=== PATIENT | male | born 1945 | race Caucasian/White ===

== ENCOUNTER 2016-06-13 08:43 | Day surgery (SDC) | payer MEDICARE, OTHER ==
[~2016-06-13 08:43] MED LIST: EPINEPHRINE INJ 1 MG/10 ML DISP.SYRIN ONE; FENTANYL CITRATE INJ/PF 100 MCG/2 ML AMPUL ONE; FLUMAZENIL INJ 0.5 MG/5 ML VIAL IV ONE; GLUCAGON,HUMAN RECOMB 1 MG INJ ONE; GLYCOPYRROLATE INJ 0.4 MG/2 ML VIAL ONE; NALOXONE HCL INJ/PF 0.4 MG/1 ML SDV ONE; ONDANSETRON HCL INJ/PF 4 MG/2 ML SDV ONE; PROMETHAZINE HCL INJ 25 MG/1 ML VIAL ONE
[2016-06-13 09:39] LABS: HEMATOCRIT 39.4 % (37.9-51.0); HEMOGLOBIN 13.5 g/dL (13.5-17.0); HGB HCT DIFFERENCE 1.1; MEAN CORPUSCULAR HEMOGLOBIN 31.4 pg (27.0-33.4); MEAN CORPUSCULAR HGB CONC 34.1 g/dL (32.0-36.0); MEAN CORPUSCULAR VOLUME 92 fl (80-97); RED BLOOD COUNT 4.29 10^6/uL (4.35-5.55); RED CELL DISTRIBUTION WIDTH 13.3 % (11.5-14.0); WHITE BLOOD COUNT 6.1 10^3/uL (4.0-10.5)
[2016-06-13] MEDS: MIDAZOLAM 2 MG/2 ML INJ ONE ×2 (11:28→11:32)
--- NOTE | 2016-06-13 12:27 | Operative Report ---
Operative Report DATE OF SURGERY: 06/13/16 PREOPERATIVE DIAGNOSIS: Screening for colon cancer POSTOPERATIVE DIAGNOSIS: Diverticulosis, prominent fold in the right colon OPERATION: Colonoscopy with right colon biopsy SURGEON: VINCENT TAYLOR ANESTHESIA: Moderate Sedation TISSUE REMOVED OR ALTERED: Right colon fold biopsy COMPLICATIONS: None ESTIMATED BLOOD LOSS: minimal INTRAOPERATIVE FINDINGS: Multiple large diverticuli throughout the colon especially the sigmoid colon with mucosal edema and spasm. Prominent fold of the right colon about 3 folds away from the cecum PROCEDURE: Informed consent was obtained. Patient was brought to the endoscopy suite and placed on the endoscopy suite table with his left side down. IV sedation with Versed and fentanyl was administered. Digital rectal exam revealed no palpable perianal masses. Endoscope was passed via the patient's anus it was fed to the cecum. Patient's the sigmoid colon had multiple large diverticuli and had the spasm with the some evidence of mucosal edema making the passage of the scope through this area extremely difficult. Visualization was the very difficult due to the spasm and redundancy and the multiple diverticuli and the possible mucosal edema. The cecum appeared normal. the right colon about 3 folds away from the cecum had a prominent fold but not a distinct polyp but the diffuse the prominence of the fold involving about half the circumference. This fold was biopsied 2 times. There were scattered diverticuli of the right colon and the transverse colon but no other abnormalities the descending colon had the scattered diverticuli. The sigmoid colon as mentioned before had multiple large diverticuli with a lot of spasm and possible mucosal edema. The sigmoid colon was very difficult to visualize but no obvious masses were seen. But the anatomy precluded perfect visualization of the sigmoid colon. The rectum appeared normal. Patient tolerated procedure well with no apparent complications and was taken to the recovery area in stable condition. Assessment: the right colon prominent fold the likely an incidental finding but will await biopsy results. Patient with the significant the diverticulosis of the colon especially the sigmoid with possible diverticulitis of this region. I wonder whether his "pelvic neuropathy" sx's may be related with smoldering chronic sigmoid diverticular disease. I will see the patient back for follow- up the next week and the will likely order a abdominal pelvic CT scan to evaluate for possible chronic diverticular disease.
--- NOTE | 2016-06-13 12:30 | PDOC DISCHARGE SUMMARY ---
Discharge Summary (SDC) - Discharge Final Diagnosis: Diverticulosis of the colon. Prominent the fold of the right colon. Date of Surgery: 06/13/16 Discharge Date: 06/13/16 Condition: Good Treatment or Instructions: Underwent colonoscopy with right colon biopsy. May discharge the patient home when met discharge criteria. Follow-up with me next week Referrals: VINCENT TAYLOR MD [ACTIVE STAFF] - 07/05/16 10:15 am Discharge Diet: As Tolerated Discharge Activity: Activity As Tolerated Report the Following to Your Physician Immediately: Increase in Pain, Fever over 101 Degrees, Unusual Bleeding, Large Clots
[2016-06-13 13:06] VITALS: BP 134/78
== END 2016-06-13 13:10 | disposition home or self-care (01) ==
LOC: END 08:43
PROVIDERS: ATTEND Surgery
PROC: 0DBF8ZX Excision of Right Large Intestine, Via Natural or Artificial Opening Endoscopic, Diagnostic (ICD-10-PCS; principal; 2016-06-13 10:15)
DX: Z12.11 Encounter for screening for malignant neoplasm of colon (principal); K57.30 Diverticulosis of large intestine without perforation or abscess without bleeding; I10 Essential (primary) hypertension; M19.90 Unspecified osteoarthritis, unspecified site; Z96.612 Presence of left artificial shoulder joint; Z79.899 Other long term (current) drug therapy; Z88.2 Allergy status to sulfonamides; Z87.891 Personal history of nicotine dependence
CPT/HCPCS: 45380; 36415; 85027; 88305 ×2; J2250; J3010; J0171; J1610; J2310; J2405; J2550; J3490

== ENCOUNTER → 2016-06-22 | Outpatient (CLI) | payer MEDICARE, OTHER | LOC: RAD 09:22 | PROVIDERS: ATTEND Surgery | DX: R10.2 Pelvic and perineal pain (principal); K57.30 Diverticulosis of large intestine without perforation or abscess without bleeding | CPT/HCPCS: 74177; 82565 ==

== ENCOUNTER 2018-01-17 12:52 | Day surgery (SDC) | payer MEDICARE, BC ==
[2018-01-10 11:10] LABS: HEMATOCRIT 39.1 % (37.9-51.0); HEMOGLOBIN 13.2 g/dL (13.5-17.0); MEAN CORPUSCULAR HEMOGLOBIN 31.4 pg (27.0-33.4); MEAN CORPUSCULAR HGB CONC 33.8 g/dL (32.0-36.0); MEAN CORPUSCULAR VOLUME 93 fl (80-97); PLATELET COUNT 336 10^3/uL (150-450); RED BLOOD COUNT 4.22 10^6/uL (4.35-5.55); RED CELL DISTRIBUTION WIDTH 13.3 % (11.5-14.0); WHITE BLOOD COUNT 6.1 10^3/uL (4.0-10.5)
[2018-01-10 11:41] LABS: ALANINE AMINOTRANSFERASE 27 U/L (21-72); ALBUMIN 4.4 g/dL (3.5-5.0); ALKALINE PHOSPHATASE 56 U/L (38-126); ANION GAP 12 (5-19); ASPARTATE AMINO TRANSFERASE 29 U/L (17-59); BILIRUBIN,DIRECT 0.3 mg/dL (0.0-0.4); BILIRUBIN,TOTAL 0.6 mg/dL (0.2-1.3); BLOOD UREA NITROGEN 22 mg/dL (7-20); CALCIUM 10.2 mg/dL (8.4-10.2); CARBON DIOXIDE 26 mmol/L (22-30); CHLORIDE 105 mmol/L (98-107); GLUCOSE 101 mg/dL (75-110); POTASSIUM 4.6 mmol/L (3.6-5.0); TOTAL PROTEIN 7.7 g/dL (6.3-8.2)
--- NOTE | 2018-01-10 22:38 | EKG REPORT ---
SEVERITY:- ABNORMAL ECG - SINUS RHYTHM PROBABLE INFERIOR INFARCT, AGE INDETERMINATE : Confirmed by: Juanito Macias 10-Jan-2018 22:37:31
[~2018-01-17 12:52] MED LIST changes: +ACETAMINOPHEN 325 MG TABLET PO PRN; +CEFOXITIN SODIUM 2 GM in DEXTROSE 5%-WATER 100 ML IV SCH; -EPINEPHRINE INJ 1 MG/10 ML DISP.SYRIN ONE; -FENTANYL CITRATE INJ/PF 100 MCG/2 ML AMPUL ONE; -FLUMAZENIL INJ 0.5 MG/5 ML VIAL IV ONE; -GLUCAGON,HUMAN RECOMB 1 MG INJ ONE; -GLYCOPYRROLATE INJ 0.4 MG/2 ML VIAL ONE; +LACTATED RINGERS 1000 ML IV PRN; +LIDOCAINE 0.5% INJ-PF (5 MG/ML) 50 ML SDV SUBCUT PRN; -NALOXONE HCL INJ/PF 0.4 MG/1 ML SDV ONE; -ONDANSETRON HCL INJ/PF 4 MG/2 ML SDV ONE; -PROMETHAZINE HCL INJ 25 MG/1 ML VIAL ONE
[2018-01-17] MEDS ORDERED: BUPIVACAINE HCL 0.25 % INJ/PF (2.5 MG/1 ML) 30 ML VIAL ONE (13:55)
[2018-01-17] MEDS ORDERED: MIDAZOLAM 2 MG/2 ML INJ ONE (15:00)
[2018-01-17] MEDS ORDERED: FENTANYL CITRATE INJ/PF 100 MCG/2 ML AMPUL ONE ×2 (15:00→16:49)
[2018-01-17] MEDS ORDERED: ONDANSETRON HCL INJ/PF 4 MG/2 ML SDV ONE (15:01)
[2018-01-17] MEDS ORDERED: HYDROMORPHONE HCL INJ/PF 2 MG/ML AMPULE ONE (15:01)
[2018-01-17] MEDS ORDERED: PROPOFOL INJ 200 MG/20 ML VIAL IV ONE (15:01)
[2018-01-17] MEDS ORDERED: ACETAMINOPHEN 1,000 MG/100 ML RTUPB IV ONE (15:01)
[2018-01-17] MEDS ORDERED: SUCCINYLCHOLINE CHLORIDE INJ 200 MG/10 ML VIAL ONE (15:08)
[2018-01-17] MEDS ORDERED: ROCURONIUM BROMIDE INJ 50 MG/5 ML VIAL IV ONE (15:08)
[2018-01-17] MEDS ORDERED: PROMETHAZINE HCL INJ 25 MG/1 ML VIAL IV PRN (15:43)
[2018-01-17] MEDS ORDERED: MEPERIDINE HCL/PF INJ 25 MG/1 ML DISP.SYRIN IV PRN (15:43)
[2018-01-17] MEDS ORDERED: MORPHINE SULFATE 10 MG/ML INJ IV PRN (15:43)
[2018-01-17] MEDS ORDERED: DIPHENHYDRAMINE HCL 50 MG/ML VIAL IV PRN (15:43)
[2018-01-17] MEDS ORDERED: FENTANYL CITRATE INJ/PF 100 MCG/2 ML AMPUL IV PRN ×3 (15:43)
[2018-01-17] MEDS ORDERED: METOPROLOL TARTRATE PF/INJ 5 MG/5 ML SDV IV ONE (15:57)
[2018-01-17] MEDS ORDERED: HYDROCODONE/ACETAMINOPHEN 10-325 MG TABLET PO PRN ×2 (16:50→17:54)
[2018-01-17 18:55] VITALS: BP 146/96
--- NOTE | 2018-01-18 10:20 | Discharge Summary ---
Discharge Summary (SDC) - Discharge Final Diagnosis: Chronic cholecystitis Date of Surgery: 01/17/18 Discharge Date: 01/17/18 Condition: Stable Forms: ASU Anesthesia D/C Instruction, Discharge POC-Surgical Service Treatment or Instructions: Discharge home. Diet as tolerated. Activity: No lifting greater than 10 pounds x 2 weeks. Menan 10/325 mg p.o. every 6 hours as needed for pain. Okay to shower starting Sunday. Wash incisions with soap and water. No tub baths or swimming times 2 weeks. Referrals: LORETTA MCNEIL MD [ACTIVE STAFF] - Discharge Diet: As Tolerated Respiratory Treatments at Home: Deep Breathing/Coughing, Incentive Spirometer Discharge Activity: No Driving, No Lifting Over 10 Pounds, Slowly Increase Activity, No tub bath, Walk Frequently Home Care Assistance: None Needed Report the Following to Your Physician Immediately: Shortness of Breath, Nausea , Vomiting, Increase in Pain, Yellow Skin, Fever over 101 Degrees, Unusual Bleeding, Redness, Swelling, Warmth, Increased Soreness, Drainage-Foul Smelling , IV Site Infection Signs
--- NOTE | 2018-01-18 10:28 | Operative Report ---
Nonrecallable Operative Report DATE OF SURGERY: 01/17/18 PREOPERATIVE DIAGNOSIS: Symptomatic cholelithiasis. POSTOPERATIVE DIAGNOSIS: Chronic cholecystitis OPERATION: Laparoscopic cholecystectomy SURGEON: LORETTA MCNEIL ANESTHESIA: GA TISSUE REMOVED OR ALTERED: Gallbladder COMPLICATIONS: None apparent ESTIMATED BLOOD LOSS: 75 cc PROCEDURE: Drains/implants: Surgicel in the gallbladder fossa. Procedure in detail. After informed consent was obtained, the patient was laid in the supine position in the operating room. The area of the abdomen was prepped and draped in a normal sterile fashion. A supraumbilical incision was created with a 15 blade scalpel. Dissection was carried through the subcutaneous tissue using blunt means. The cicatrix was identified, grasped with a Jada clamp, and retracted upwards. The linea alba fascia was incised sharply. The abdomen was entered sharply. The balloon trocar was inserted, and pneumoperitoneum was achieved. A subxiphoid 5 mm port was then placed under direct laparoscopic visualization. 2 more 5 mm ports were placed in the right upper quadrant in similar fashion. Atraumatic graspers were placed through the 5 mm ports. The gallbladder was identified. There is a large amount of omentum densely adherent to the gallbladder. The omentum was dissected away from the gallbladder using blunt dissection, sharp dissection, and judicious amounts electrocautery. Once the infundibulum was identified, there was a chronic inflammatory reaction surrounding the infundibulum. Dissection was begun in the triangle of Calot. The cystic duct and cystic artery were fully visualized and skeletonized, seeing the liver through the triangle. Once the critical view of safety was obtained, the cystic duct and cystic artery were clipped and cut with laparoscopic instruments. The gallbladder was then removed from the liver using electrocautery. The liver was somewhat friable and bleeding was encountered. The bleeding was halted with the use of electrocautery. Once the gallbladder was removed from the liver it was placed into an Endo Catch bag and pulled out through the umbilicus. The camera was reinserted. The abdomen was copiously irrigated and suctioned until the effluent was clear. The hilum was inspected. It was found to be free of any leakage of blood or bile. Surgicel was left within the liver bed due to the bleeding encountered during the operation. The 5 mm trochars were removed under direct laparoscopic visualization. The supraumbilical trochars was removed, and pneumoperitoneum was relieved. The supraumbilical fascia was closed using 0 Vicryl suture in [id number] fashion. The overlying skin was closed using 4-0 Vicryl Rapide suture in subcuticular fashion. All sponge, instrument, and needle counts were correct x2. Condition: Stable.
== END 2018-01-17 18:45 | disposition home or self-care (01) ==
LOC: OROUT 12:52
PROVIDERS: ATTEND Surgery
DX: K81.1 Chronic cholecystitis (principal); K83.8 Other specified diseases of biliary tract; R73.03 Prediabetes; M19.90 Unspecified osteoarthritis, unspecified site; I10 Essential (primary) hypertension; G62.9 Polyneuropathy, unspecified; Z88.0 Allergy status to penicillin; Z79.899 Other long term (current) drug therapy
CPT/HCPCS: 93005; 36415; 85027; 80076; 80048; 88304 ×2; 93010; 47562; J2250; J3490 ×2; J0694; J3010; J1170; J0330; J2405; J2704; J0131; A9270; 790

== ENCOUNTER 2018-08-30 10:38 | Emergency (ER) | payer MEDICARE, BC ==
[2018-08-30 10:44] VITALS: BP 147/85
--- NOTE | 2018-08-30 11:11 | ER Document Report ---
ED Extremity Problem, Upper - General Chief Complaint: Shoulder Pain Stated Complaint: SHOULDER PAIN Time Seen by Provider: 08/30/18 10:55 Primary Care Provider: NICOLA CABALLERO MD [Primary Care Provider] - Follow up as needed Mode of Arrival: Ambulatory Information source: Patient Notes: 73-year-old male presents to ED for complaint of right shoulder pain times 2 mo nths. He states he has been diagnosed with bursitis of the right shoulder and he needs a steroid injection into his right shoulder. He states he has a scheduled appointment on Sunday for this injection but has been all over town trying to get an injection today. Patient is alert oriented respirations regular and unlabored speaking in full sentences walking with a even steady gait. He states he did just have eye surgery to the right eye. TRAVEL OUTSIDE OF THE [place] IN LAST 30 DAYS: No - HPI Patient complains to provider of: Pain, Shoulder - Right shoulder bursitis Onset: Other - 2 months Recent injury: No Quality of pain: Achy, Sharp Severity of pain: Moderate Associated symptoms: Other Exacerbated by: Movement - Pain, Exertion Relieved by: Nothing Similar symptoms previously: Yes Recently seen / treated by doctor: Yes - Related Data Allergies/Adverse Reactions: Sulfa (Sulfonamide Antibiotics) Adverse Reaction (Unknown, Verified 08/30/18 10:43) RASH Past Medical History - General Information source: Patient - Social History Smoking Status: Never Smoker Frequency of alcohol use: None Drug Abuse: None Lives with: Family Family History: Reviewed & Not Pertinent Patient has suicidal ideation: No Patient has homicidal ideation: No - Past Medical History Cardiac Medical History: Reports: Hx Hypercholesterolemia, Hx Hypertension Pulmonary Medical History: Reports: None EENT Medical History: Reports: None Neurological Medical History: Reports: None Endocrine Medical History: Reports: None Renal/ Medical History: Reports: None Malignancy Medical History: Reports None GI Medical History: Reports: Hx Colonoscopy, Hx Endoscopy Musculoskeletal Medical History: Reports Hx Arthritis - OSTEOARTHRITIS, Reports Hx Musculoskeletal Deformity, Reports Hx Musculoskeletal Trauma Skin Medical History: Reports None Psychiatric Medical History: Reports: None Traumatic Medical History: Reports: None Infectious Medical History: Reports: None Past Surgical History: Reports: Hx Orthopedic Surgery - Left right knee surgery back injections, Other - Cataracts eye surgery multiple cyst removals hemorrhoid removal - Immunizations Hx Diphtheria, Pertussis, Tetanus Vaccination: No - Unsure Hx Pneumococcal Vaccination: 05/11/16 Review of Systems - Review of Systems Constitutional: No symptoms reported EENT: No symptoms reported Cardiovascular: No symptoms reported Respiratory: No symptoms reported Gastrointestinal: No symptoms reported Genitourinary: No symptoms reported Male Genitourinary: No symptoms reported Musculoskeletal: Joint pain - Right shoulder times 2 months Skin: No symptoms reported Hematologic/Lymphatic: No symptoms reported Neurological/Psychological: No symptoms reported -: Yes All other systems reviewed and negative Physical Exam - Vital signs Vitals: Temp Pulse Resp BP Pulse Ox 97.4 F 55 L 16 147/85 H 96 08/30/18 10:43 08/30/18 10:43 08/30/18 10:43 08/30/18 10:43 08/30/18 10:43 Interpretation: Normal - General General appearance: Appears well, Alert - HEENT Head: Normocephalic, Atraumatic Eyes: Normal Pupils: PERRL - Respiratory Respiratory status: No respiratory distress Chest status: Nontender Breath sounds: Normal Chest palpation: Normal - Cardiovascular Rhythm: Regular Heart sounds: Normal auscultation Murmur: No - Abdominal Inspection: Normal Distension: No distension Bowel sounds: Normal Tenderness: Nontender Organomegaly: No organomegaly - Back Back: Normal, Nontender - Extremities General upper extremity: Normal inspection, Normal color, Normal ROM, Normal temperature General lower extremity: Normal inspection, Nontender, Normal color, Normal ROM, Normal temperature, Normal weight bearing. No: Keaton's sign Shoulder: Tender - Right shoulder, Limited ROM - Pain with range of motion. No: Abrasion, Deformity, Dislocation, Ecchymosis, Instability, Laceration - Neurological Neuro grossly intact: Yes Cognition: Normal Orientation: AAOx4 Ramirez Coma Scale Eye Opening: Spontaneous [place] Coma Scale Verbal: Oriented Ramirez Coma Scale Motor: Obeys Commands [place] Coma Scale Total: 15 Speech: Normal Motor strength normal: LUE, RUE, LLE, RLE Sensory: Normal - Psychological Associated symptoms: Normal affect, Normal mood - Skin Skin Temperature: Warm Skin Moisture: Dry Skin Color: Normal Course - Re-evaluation Re-evalutation: 08/30/18 11:16 Patient has a history of bursitis and is looking for a injection into his bursa of the shoulder. I have explained to him that no one here does shoulder inj ections. I have also called the orthopedics and there is no time that he could come in today to get one. He states he has one scheduled for Sunday he was just trying to get one today. I have offered him Tylenol Motrin steroid and he has refused all. He states he has a prescription of some creams and has narcotics in it and it does not help the pain. - Vital Signs Vital signs: Temp Pulse Resp BP Pulse Ox 97.4 F 55 L 16 147/85 H 96 08/30/18 10:43 08/30/18 10:43 08/30/18 10:43 08/30/18 10:43 08/30/18 10:43 Discharge - Discharge Clinical Impression: Hx of bursitis Shoulder pain, right Qualifiers: Chronicity: unspecified Qualified Code(s): M25.511 - Pain in right shoulder Condition: Stable Additional Instructions: He was seen today for right shoulder pain times 2 months. He states you are having bursitis pain that you have a history of bursitis and you wanted to know if you can get a shot in the shoulder today. Not do joint injections in the emergency room I have called the technical specialist and they do not do walk-in joint injections. Offered you ibuprofen or steroids by mouth or injection and you stated you did not want either of these you need to joint injection. That you do have a appointment next week and I apologize but we just cannot get you one before that. FOLLOW-UP CARE: If you have been referred to a physician for follow-up care, call the physicians office for an appointment as you were instructed or within the next two days. If you experience worsening or a significant change in your symptoms, notify the physician immediately or return to the Emergency Department at any time for re-evaluation. Referrals: NICOLA CABALLERO MD [Primary Care Provider] - Follow up as needed
== END 2018-08-30 11:09 | disposition home or self-care (01) ==
LOC: ER 10:38
DX: M25.511 Pain in right shoulder (principal); E78.00 Pure hypercholesterolemia, unspecified; I10 Essential (primary) hypertension; Z88.2 Allergy status to sulfonamides
CPT/HCPCS: 99283

== ENCOUNTER → 2018-11-01 | Outpatient (CLI) | payer MEDICARE, BC ==
--- NOTE | 2018-11-01 15:21 | RADIOLOGY REPORT (SQ) ---
EXAM DESCRIPTION: MRI CERVICAL SPINE WITHOUT COMPLETED DATE/TIME: 11/01/2018 2:18 pm REASON FOR STUDY: CERVICAL RADICULOPATHY M54.12 RADICULOPATHY, CERVICAL REGION COMPARISON: None. TECHNIQUE: Sagittal and Axial imaging includes T1, T2, STIR and gradient echo sequences. LIMITATIONS: None. FINDINGS: ALIGNMENT: Mild lower cervical kyphosis. VERTEBRAE: Intact. BONE MARROW: Normal. No marrow replacement or reactive changes. DISCS: Disc spaces are significantly narrowed from C5- T1 with milder narrowing at C3-4 and C4-5. HARDWARE: None in the spine. CORD AND BASE OF BRAIN: Normal in size and signal intensity. SOFT TISSUES: No soft tissue masses. C1-C2: No significant spinal stenosis. C2-C3: No significant spinal stenosis. C3-C4: Shallow broad-based disc/osteophyte complex slightly more prominent on the right. No central canal or foraminal stenosis. C4-C5: No significant spinal stenosis or exit foraminal stenosis. C5-C6: Shallow broad-based disc/osteophyte complex with no central canal or foraminal stenosis. C6-C7: Broad-based disc/osteophyte complex more prominent on the right. There is also uncovertebral osteophyte at this level. This results in mild distortion of the spinal cord on the image 90 series 7. Right-sided foraminal stenosis. C7-T1: Shallow broad-based disc/osteophyte complex. No central canal stenosis. There appears to be right foraminal stenosis secondary to uncovertebral osteophytes and facet hypertrophy. UPPER THORACIC: Incompletely imaged. No significant spinal stenosis or exit foraminal stenosis. OTHER: No other significant finding. IMPRESSION: There are disc/osteophyte complexes at multiple levels as described above. Most signifi cant findings appear to be at C6-7 and C7-T1. TECHNICAL DOCUMENTATION: JOB ID: [id number] [employer]- All Rights Reserved Reading location - IP/workstation name: [email or web address]
== END ==
LOC: RAD 13:42
PROVIDERS: ATTEND Neurological Surgery
DX: M54.12 Radiculopathy, cervical region (principal)
CPT/HCPCS: 72141